=== PATIENT | male | born 1970 | race American Indian/Alaskan Native ===

== ENCOUNTER 2017-06-11 09:45 | Emergency (ER) | payer SELFPAY ==
[~2017-06-11] VITALS: Ht 180.3 cm; Wt 97.5 kg
[2017-06-11] MEDS ORDERED: ZYPREXA15 MG PO (09:53)
== END 2017-06-11 10:03 | disposition home or self-care (01) ==
LOC: ED 09:45
DX: Z00.8 Encounter for other general examination (principal)

== ENCOUNTER 2018-03-15 22:20 | Emergency (ER) | payer OTHER ==
[~2018-03-15] VITALS: Ht 180.3 cm; Wt 97.5 kg
[~2018-03-15 22:20] MED LIST: ZYPREXA15 MG PO
--- NOTE | 2018-03-17 11:00 | EKG ---
[facility] [address] [facility] [place] [address] Signed Normal sinus rhythm Possible Left atrial enlargement Borderline ECG No previous ECGs available Confirmed by ISABEL JOHNSTON MD ([id number]) on 03/17/2018 11:00:26 AM Electronically Signed By: ISABEL JOHNSTON MD 03/17/18 1100 PATIENT NAME: CHUY LEWISDENZEL Electrocardiogram DATE OF : 72 PHYSICIAN: ISABEL JOHNSTON MD REPORT #: [id number] REPORT IS CONFIDENTIAL AND NOT TO BE RELEASED WITHOUT AUTHORIZATION
== END 2018-03-16 00:36 | disposition home or self-care (01) ==
LOC: ED 22:20
DX: F11.23 Opioid dependence with withdrawal (principal); F17.200 Nicotine dependence, unspecified, uncomplicated; Z79.899 Other long term (current) drug therapy
CPT/HCPCS: 80053; 80176; 81001; 84484; 85025; 93005; 93010; 96360; 99284; G0480; J7030

== ENCOUNTER 2018-06-20 20:09 | Emergency (ER) | payer OTHER ==
[~2018-06-20] VITALS: Ht 180.3 cm; Wt 99.8 kg
[2018-06-20] MEDS ORDERED: ZYPREXA10 MG PO (20:22)
[2018-06-20] MEDS ORDERED: ACETAMINOPHEN-1 EAC1 PO (20:36)
[2018-06-20] MEDS ORDERED: CEPHALEXIN500 MG PO (20:36)
== END 2018-06-20 20:49 | disposition home or self-care (01) ==
LOC: ED 20:09
DX: K08.89 Other specified disorders of teeth and supporting structures (principal); F17.200 Nicotine dependence, unspecified, uncomplicated; Z79.899 Other long term (current) drug therapy
CPT/HCPCS: 99282

== ENCOUNTER → 2020-07-03 | Emergency (ER) | payer OTHER ==
[~2020-07-03] VITALS: Ht 180.3 cm; Wt 99.8 kg
[~2020-07-03] MED LIST changes: +ACETAMINOPHEN-1 EAC1 PO; +CEPHALEXIN500 MG PO; +ZYPREXA10 MG PO
--- OUTSIDE RECORDS SUMMARY | ~2020-07-03 | XMS | Encounter Summary ---
Demographics + + + | Address | [address] | | | [place] [address] | + + + | Home Phone | | + + + | Preferred Language | Unknown | + + + | Marital Status | Unknown | + + + | Jewish Affiliation | Unknown | + + + | Race | Unknown | + + + | Ethnic Group | Unknown | + + + Author + + + | Author | [facility] [place] | | | and [place] | + + + | Organization | [facility] [place] | | | and [place] | + + + | Address | Unknown | + + + | Phone | Unavailable | + + + Care Team Providers + +------+ + | Care Leather Currier Name | Role | Phone | + +------+ + PCP | Unavailable | + +------+ + Encounter Details +--------+ + + + + | Date | Type | Department | Care Team | Description | +--------+ + + + + | 05/18/ | Hospital | [facility] | Anup, | | | 2005 | Encounter | MED CTR EMERGENCY | Jaspreet Santana MD [address] | | | | | [place] [address] | [facility] | | | | | [place] | [place] [address] | | | | | [address] | [phone] | | | | | [phone] | | | +--------+ + + + + Social History + +-------+ +--------+------+ | Tobacco Use | Types | Packs/Day | Years | Date | | | | | Used | | + +-------+ +--------+------+ | Never Assessed | | | | | + +-------+ +--------+------+ + + + | Sex Assigned at | Date Recorded | | | | + + + | Not on file | | + + + documented as of this encounter Plan of Treatment Not on filedocumented as of this encounter Visit Diagnoses Not on filedocumented in this encounter"
--- OUTSIDE RECORDS SUMMARY | ~2020-07-03 | XMS | Encounter Summary ---
Demographics + + + | Address | [address] | | | [place] [address] | + + + | Home Phone | | + + + | Preferred Language | Unknown | + + + | Marital Status | Unknown | + + + | Nondenominational Affiliation | Unknown | + + + | Race | Unknown | + + + | Ethnic Group | Unknown | + + + Author + + + | Author | [facility] [place] | | | and [place] | + + + | Organization | [facility] [place] | | | and [place] | + + + | Address | Unknown | + + + | Phone | Unavailable | + + + Care Team Providers + +------+ + | Care Sub Acute Care Nurse Name | Role | Phone | + +------+ + PCP | Unavailable | + +------+ + Encounter Details +--------+ + + + + | Date | Type | Department | Care Team | Description | +--------+ + + + + | 04/11/ | Hospital | [facility] | Anup, | | | 2006 | Encounter | MED CTR EMERGENCY | Jaspreet Santana MD [address] | | | | | [place] [address] | [facility] | | | | | [place] [address] [place] | [place] [address] | | | | | [address] | [phone] | | | | | [phone] | | | +--------+ + + + [...]
--- OUTSIDE RECORDS SUMMARY | ~2020-07-03 | XMS | Clinical Summary ---
Demographics + + + | Address | [address] | | | [place] [address] | + + + | Home Phone | | + + + | Preferred Language | Unknown | + + + | Marital Status | Unknown | + + + | Restoration Affiliation | Unknown | + + + | Race | Unknown | + + + | Ethnic Group | Unknown | + + + Author + + + | Author | [facility] [place] | | | and [place] | + + + | Organization | [facility] [place] | | | and [place] | + + + | Address | Unknown | + + + | Phone | Unavailable | + + + Care Team Providers + +------+ + | Care Freight Representative Name | Role | Phone | + +------+ + PCP | Unavailable | + +------+ + Allergies Not on File Medications Not on file Active Problems Not on file Social History + +-------+ +--------+------+ | Tobacco [...] on file | | + + + Last Filed Vital Signs Not on file Plan of Treatment + + +-------+ + | Health Maintenance | Due Date | Last | Comments | | | | Done | | + + +-------+ + | Vaccine: | | | | | Dtap/Tdap/Td (1 - | 0 | | | | Tdap) | | | | + + +-------+ + | Vaccine: Influenza | | | | | (#1) | 0 | | | + + +-------+ + Results Not on filefrom Last 3 Months"
--- OUTSIDE RECORDS SUMMARY | ~2020-07-03 | XMS | Encounter Summary ---
Demographics + + + | Address | [address] | | | [place] [address] | + + + | Home Phone | | + + + | Preferred Language | Unknown | + + + | Marital Status | Unknown | + + + | Adventist Affiliation | Unknown | + + + | Race | Unknown | + + + | Ethnic Group | Unknown | + + + Author + + + | Author | [facility] [place] | | | and [place] | + + + | Organization | [facility] [place] | | | and [place] | + + + | Address | Unknown | + + + | Phone | Unavailable | + + + Care Team Providers + +------+ + | Care Broker Agricultural Produce Name | Role | Phone | + +------+ + PCP | Unavailable | + +------+ + Encounter Details +--------+ + + + + | Date | Type | Department | Care Team | Description | +--------+ + + + + | 07/07/ | Hospital | [facility] | | | | 1994 | Encounter | MED CTR EMERGENCY | | | | | | CENTER [address] | | | | | | [place] | | | | | | [address] | | | | | | [phone] | | | +--------+ + + + [...]
== END ==
LOC: ED 17:49
DX: Z53.21 Procedure and treatment not carried out due to patient leaving prior to being seen by health care provider (principal)

== ENCOUNTER 2021-02-11 06:50 | Day surgery (SDC) | payer OTHER ==
[~2021-02-11] VITALS: Ht 180.3 cm; Wt 109.1 kg
[~2021-02-11 06:50] MED LIST changes: +GEODON60 MG PO; +SYNTHROID50 MCG PO
--- NOTE | 2021-02-11 13:46 | OR ---
[facility] [address] [place], [place] [address] Signed DATE OF OPERATION: 02/11/2021 SURGEON: Darrius Ca MD PREOPERATIVE DIAGNOSES: Dysphagia, hoarseness, sore throat. POSTOPERATIVE DIAGNOSIS: Dysphagia, hoarseness, sore throat. PROCEDURE: Direct laryngoscopy, direct esophagoscopy. ANESTHESIA: General orotracheal. SOLO TRUCK DRIVER: Baldemar. PREOPERATIVE HISTORY: Himanshu is a 50-year-old man, smoker with a long history of sore throats, dysphagia, hoarseness. Exam in the office had shown some diffuse edema in the larynx posteriorly. He has been unresponsive to conservative measures and he is taken to the operating room for exam under anesthesia, laryngoscopy, esophagoscopy. OPERATIVE PROCEDURE AND FINDINGS: After informed consent, the patient was taken to the operating room, placed in supine position where general orotracheal anesthesia was induced. The patient and procedure were verified. The patient was repositioned. Tooth guard placed. Anterior commissure laryngoscope was used to visualize the hypopharynx and larynx. Every mucosal surface appeared normal. No suspicious lesions. Scope was removed. No biopsies taken. A cervical esophagoscope was then passed down to about 20 cm from the incisors. No abnormality seen looking at the esophagus, both going in and coming out, all appeared normal. Lots of refluxed stomach secretions were identified and suctioned clear. No biopsies taken. The scope was removed. The patient was awakened, extubated, transported to the recovery room in good condition. No complications. BLOOD LOSS: Minimal. Electronically Signed By: DARRIUS CA MD 02/11/21 1346 PATIENT NAME: HIMANSHU LEWIS OPERATIVE REPORT DATE OF : 72 REPORT #: [id number] PHYSICIAN: DARRIUS CA MD PCP: ISABEL JOHNSTON MD REPORT IS CONFIDENTIAL AND NOT TO BE RELEASED WITHOUT AUTHORIZATION [address] [address] Signed SPECIMEN: No specimen. DRAINS: No drains. Darrius Ca MD GC/MODL /[id number] Copies: ~ Electronically Signed By: DARRIUS CA MD 02/11/21 1346 PATIENT NAME: HIMANSHU LEWIS OPERATIVE REPORT DATE OF : 72 REPORT #: [id number] PHYSICIAN: DARRIUS CA MD PCP: ISABEL JOHNSTON MD REPORT IS CONFIDENTIAL AND NOT TO BE RELEASED WITHOUT AUTHORIZATION
== END 2021-02-11 09:30 | disposition home or self-care (01) ==
LOC: OPS 06:50 → DS 06:50 → OPS 07:30 → DS 07:30 → OPS 09:30
PROVIDERS: ATTEND Otolaryngology
PROC: 0CJS8ZZ Inspection of Larynx, Via Natural or Artificial Opening Endoscopic (ICD-10-PCS; principal; 2021-02-11 06:45)
PROC: 0DJ08ZZ Inspection of Upper Intestinal Tract, Via Natural or Artificial Opening Endoscopic (ICD-10-PCS; 2021-02-11 06:45)
DX: J37.0 Chronic laryngitis (principal); K21.9 Gastro-esophageal reflux disease without esophagitis; R13.10 Dysphagia, unspecified; F17.200 Nicotine dependence, unspecified, uncomplicated
CPT/HCPCS: J1100; J1885; J2001; J2704; J3010; J7121

== ENCOUNTER 2022-01-31 08:29 | Emergency (ER) | payer OTHER ==
[~2022-01-31] VITALS: Ht 180.3 cm; Wt 125.5 kg
[~2022-01-31 08:29] MED LIST changes: +METHADONE HCL40 MG PO
== END 2022-01-31 08:58 | disposition home or self-care (01) ==
LOC: ED 08:29
DX: K14.9 Disease of tongue, unspecified (principal); F17.200 Nicotine dependence, unspecified, uncomplicated; Z79.899 Other long term (current) drug therapy
CPT/HCPCS: 99283

== ENCOUNTER 2022-06-03 13:34 | Inpatient (IN) | payer OTHER ==
[~2022-06-03] VITALS: Ht 180.3 cm; Wt 112.7 kg
--- NOTE | 2022-06-03 16:15 | NUR ---
REPORT RECIEVED, CARE OF PT ASSUMED AT THIS TIME. PT TRANSPORTED TO CCU ON SYRUP MIXER HELPER AND 2 L NC. PT CUFFED TO STRETCHER AT TIME OF TRANSPORT
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
--- NOTE | 2022-06-03 17:05 | NUR ---
ANESTHESIOLOGIST IN ROOM WIHT PT AT THIS TIME.
--- NOTE | 2022-06-03 17:40 | NUR ---
PT TAKEN TO SURGERY BY 2 RNS. OFFICER AT BEDSIDE.
--- NOTE | 2022-06-03 19:07 | NUR ---
06/03/221906 Antonette Almaguer 183: PT INTO PACU FROM OR 1 FOR SINGLE VIEW CXR AND VS OBTAINED. DR. OROZCO IN PACU AND WEATHER FORECASTER IN PACU AT BEDSIDE. PT ON 6L 02 VIA MASK, SATS 100%. PT MOANING WITH PAIN AND MUMBLING. 184: IMAGING IN PACU AND CXR PERFORMED. 185: TO CCU RM 126 VIA BED AND CCU RN HELP TUCK PT IN. WEATHER FORECASTER SITTING OUTSIDE OF PT ROOM WITH CURTAIN OPEN. PT RIGHT ARM CUFFED TO BED AT THIS TIME. PT CONT TO MOAN WITH PAIN. 190: PT ABLE TO SLUR HIS PAIN 6/10 WHEN ASKED AND SAYS "NO" TO NAUSEA. 190: CCU RN'S AT RN STATION GIVING REPORT. THIS RN ASKS FOR ONE OF THEM TO GET PAIN MEDICINE AT THIS TIME PER ORDERS.
--- NOTE | 2022-06-03 19:45 | NUR ---
REPORT FROM DENIAL MANAGEMENT REPRESENTATIVE RECEIVED. PATIENT IS ALERT, MOANING AND ANSWERING SIMPLE QUESTIONS. VS STABLE.
--- NOTE | 2022-06-03 20:15 | NUR ---
PATIENT IS ALERT, SPEAKING SOMEWHAT NONSENSE TO THE OFFICER. PATIENT IS CALM AND FOLLOWS INSTRUCTION. PATIENT ROLLED ONTO HIS LEFT SIDE WITH SOME ASSISTANCE. DRESSING OVER DRAIN IS INTACT; MODERATE DRAINAGE NOTED. PATIENT LUNG SOUNDS ARE CLEAR INSPIRTORY WITH EXPIRTORY WHEEZE THROUGHOUT. VS STABLE. PATIENT MEDICATED FOR PAIN 05/27. SCDs IN PLACE. PATIENT DENIES NEED TO VOID, MALE INCONTINENCE PAD IN PLACE. IV FLUIDS PER ORDER, IV SITES FLUSHES X2. PATIENT IN CORRECTIONAL RESTRAINT MANAGED BY OFFICER IN THE ROOM. CUFF SWITCHED FROM RIGHT WRIST TO LEFT. SKIN WNL. CALL LIGHT IN HAND. PATIENT INSTRUCTED TO CALL FOR ANY NEEDS.
--- NOTE | 2022-06-03 22:45 | NUR ---
PATIENT AWAKE AND ALERT. PATIENT REQUESTING FENTANYL. DISCUSSED PAIN MANAGEMENT WITH PATIENT. PRN PERCOCET PROVIDED WITH SCHEDULED TYLENOL. ICE PACK OFFERED AND DECLINED. PATIENT TAKING SIPS OF WATER. DENIES NAUSEA. NO SIGNS OF BLEEDING NOTED. MODERATED DRAINAGE NOTED ON DRESSING. VS STABLE. CALL LIGHT IN REACH.
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
--- NOTE | 2022-06-04 07:14 | NUR ---
UPDATE GIVEN TO
--- NOTE | 2022-06-04 07:56 | NUR ---
IN ROOM TO ASSESS PT. OFFICER AT BEDSIDE. PT EATING BREAKFAST. DENIES PAIN. BREATHING EVEN AND UNLABORED. SPO2 = 95% ON ROOM AIR. DISCUSSED PLAN OF CARE. PT AGREEABLE. IV FLUIDS INFUSING, CALL LIGHT WITHIN REACH. WILL CONTINUE TO MONITOR.
--- NOTE | 2022-06-04 08:30 | NUR ---
SLING NOW IN PLACE ON RIGHT ARM PER DR OROZCO ORDER. PT AMBULATED IN HALLWAY. STEADY ON FEET. PAIN WELL CONTROLLED. NOW BACK IN BED. CALL LIGHT WITHIN REACH, WILL CONTINUE TO MONITOR.
[2022-06-04] MEDS ORDERED: LEVOTHYROXINE125 MCG PO (09:32)
[2022-06-04] MEDS ORDERED: ZIPRASIDONE HCL80 MG PO (09:33)
--- NOTE | 2022-06-04 09:39 | NUR ---
MED REC COMPLETE
--- NOTE | 2022-06-04 09:47 | NUR ---
PER AM MEETING AND CHART REVIEW PATIENT TO DISCHARGE TO CARE HOME WHEN STABLE. GUARDS AT BEDSIDE.
--- NOTE | 2022-06-04 10:32 | NUR ---
DR OROZCO IN ROOM TO ASSESS PT. UNDRESSED WOUND, PACKING REMOVED. VERBAL INSTRUCTION TO COVER WITH GAUZE AND TAPE. PT INSTRUCTED UPON DISCHARGE TO REMOVE DRESSING AND SHOWER DAILY. FOLLOW UP APPOINTMENT WITH DR OROZCO IN 1-2 WEEKS. [facility] SCHEDULING FOLLOW UP APPOINTMENT AT THIS TIME. PLAN ESTABLISHED FOR PT TO DISCHARGE AT THIS TIME.
[2022-06-04] MEDS ORDERED: ACETAMINOPHEN500 MG PO (10:39)
[2022-06-04] MEDS ORDERED: MOTRIN IB200 MG PO (10:40)
--- NOTE | 2022-06-04 10:43 | NUR ---
PT GIVEN PRN PAIN MEDICATION AT THIS TIME (SEE MEAR).
--- NOTE | 2022-06-04 11:06 | NUR ---
PT PROVIDED DC EDUCATION AT THIS TIME. YAZMINS DC'D. [facility] NURSE AT THE [facility] GIVEN DC INSTRUCTIONS WELL. DETECTIVES IN ROOM AT THIS TIME TO INTERVIEW PT AFTER DISCHARGE. OK'S WITH PATIENT REGISTRAR. PT OFFICALLY DISCHARGED AT THIS TIME. BUT REMAINS IN ROOM WITH DETECTIVES.
--- NOTE | 2022-06-04 11:20 | NUR ---
NURSE MONGE AT ASSISTED TO GIVE AN DISCHARGE INFORMATION. DISCHARGE INSTRUCTIONS ALSO FAXED TO ASSISTED INFIMARY.
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
== END 2022-06-04 12:45 | disposition home or self-care (01) | DRG 571 ==
LOC: ED 13:34 → CCU 13:36
PROVIDERS: ADMIT Surgery; ATTEND Surgery
PROC: 0W9800Z Drainage of Chest Wall with Drainage Device, Open Approach (ICD-10-PCS; 2022-06-03)
PROC: 0JB60ZZ Excision of Chest Subcutaneous Tissue and Fascia, Open Approach (ICD-10-PCS; principal; 2022-06-03 17:40)
DX: S21.231A Puncture wound without foreign body of right back wall of thorax without penetration into thoracic cavity, initial encounter (principal); S27.329A Contusion of lung, unspecified, initial encounter; S22.41XA Multiple fractures of ribs, right side, initial encounter for closed fracture; S27.0XXA Traumatic pneumothorax, initial encounter; I95.9 Hypotension, unspecified; F19.90 Other psychoactive substance use, unspecified, uncomplicated; B19.20 Unspecified viral hepatitis C without hepatic coma; F17.210 Nicotine dependence, cigarettes, uncomplicated; Z90.49 Acquired absence of other specified parts of digestive tract; Z79.899 Other long term (current) drug therapy; S42.101A Fracture of unspecified part of scapula, right shoulder, initial encounter for closed fracture; Z20.822 Contact with and (suspected) exposure to COVID-19; W34.00XA Accidental discharge from unspecified firearms or gun, initial encounter
CPT/HCPCS: 00400; 36415; 71045; 71260; 74177; 80053; 81001; 82150; 82553; 83605; 83690; 85025; 86850; 86900; 86901; 87088; 87502; 88304; 90471; 90715; 96375; 96376; 99285-25; A9270; C9803; G0480; J0330; J0690; J1100; J1170; J1885; J2001; J2250; J2270; J2405; J2704; J3010; J7121; Q9967; U0003